=== PATIENT | female | born 1980 | race Caucasian/White ===

== ENCOUNTER 2023-05-17 18:22 | Emergency (ER) | payer OTHER ==
[~2023-05-17] VITALS: Ht 152.4 cm; Wt 52.2 kg
[2023-05-17 18:28] VITALS: BP_SYST 126; PULSE 74; RESP 20; TEMP 98.3; O2SAT 97
[2023-05-17 20:52] LABS: BILIRUBIN,URINE NEGATIVE (NEGATIVE); BLOOD, URINE 2+ (NEGATIVE); CLARITY/URINE SL CLOUDY (CLEAR); COLOR,URINE YELLOW (YELLOW); GLUCOSE,URINE NEGATIVE (NEGATIVE); KETONES,URINE NEGATIVE (NEGATIVE); LEUKOCYTE ESTERASE ,URINE NEGATIVE (NEGATIVE); NITRITE, URINE POSITIVE (NEGATIVE); PROTEIN URINE TRACE (NEGATIVE); UROBILINOGEN,URINE 0.2 (0.2-1.0)
[2023-05-17 21:30] LABS: BACTERIA,URINE MANY /HPF (None Seen); WBC,URINE 0-3 /HPF (0-3)
[2023-05-17] MEDS ORDERED: NITR-85 PO (21:50)
[2023-05-17 22:58] VITALS: BP_SYST 120; PULSE 72; RESP 20; TEMP 98.3; O2SAT 97
== END 2023-05-17 22:58 ==
LOC: SED 18:22
DX: Z02.89 Encounter for other administrative examinations (principal); N39.0 Urinary tract infection, site not specified; G89.29 Other chronic pain; M54.50 Low back pain, unspecified; R30.0 Dysuria; J45.909 Unspecified asthma, uncomplicated; Z79.899 Other long term (current) drug therapy
CPT/HCPCS: 81000; 81025; 87086; 99283